=== PATIENT | male | born 1980 | race Caucasian/White ===

== ENCOUNTER 2017-05-31 10:00 | Emergency (ER) | payer OTHER ==
[2017-05-31] MEDS ORDERED: NORMAL SALINE 10 ML SYRINGE FLUSH IVP PRN (10:19)
[2017-05-31] MEDS ORDERED: TAMSULOSIN 0.4 MG CAPSULE PO ONE (10:19)
[2017-05-31] MEDS ORDERED: Sodium Chloride 0.9% 1,000 ML PRIMARY IV ONE (10:19)
[2017-05-31] MEDS ORDERED: KETOROLAC 30 MG/1 ML VIAL IVP ONE (10:19)
[2017-05-31 10:32] LABS: BASOPHILS # (AUTO) 0.01 10*3/UL; BASOPHILS % (AUTO) 0.1 % (0-1); EOSINOPHILS # (AUTO) 0.05 10*3/UL; EOSINOPHILS % (AUTO) 0.7 % (0-8); HEMATOCRIT 44.7 % (42.0-52.0); HEMOGLOBIN 16.1 g/dL (14.0-18.0); LYMPHOCYTES # (AUTO) 1.07 10*3/uL; MEAN CORPUSCULAR HEMOGLOBIN 31.9 PG (27-31); MEAN CORPUSCULAR VOLUME 88.5 FL (80-90); MEAN PLATELET VOLUME 10.3 FL (7.4-12.2); MONOCYTES # (AUTO) 0.53 10*3/UL (0.3-0.8); MONOCYTES % (AUTO) 7.3 % (5-15); NEUTROPHILS % (AUTO) 76.9 % (50-80); RED BLOOD COUNT 5.05 10^6/uL (4.70-6.10)
[2017-05-31 10:34] LABS: BILIRUBIN,URINE MODERATE (NEG); CLARITY,URINE CLEAR (CLEAR); COLOR,URINE BROWN; GLUCOSE, URINE (UA) NEGATIVE (NEG); NITRATE,URINE NEGATIVE (NEG); OCCULT BLOOD,URINE LARGE (NEG); PH,URINE 5.5 (5.0-8.5); PLATELET MORPHOLOGY COMMENT NORMAL MORPHOLOGY (NORM); PROTEIN,URINE 100 mg/dl (NEG); RBC MORPHOLOGY COMMENT NORMAL MORPHOLOGY (NORM); WBC MORPHOLOGY COMMENT NORMAL MORPHOLOGY (NORM)
[2017-05-31 10:35] LABS: URINE SAMPLE TYPE CLEAN CATCH URINE
[2017-05-31 10:37] LABS: BLOOD UREA NITROGEN 15 mg/dL (7-22); BUN/CREATININE RATIO 16.66 (6-20); CALCIUM 9.2 mg/dL (8.7-10.7); EST GLOMERULAR FILTRATION > 60 (>60 ml/min/1.73m(2)); SERUM ALBUMIN 4.8 g/dL (3.5-4.8)
[2017-05-31 10:44] LABS: RBC,URINE 20-30 /hpf; SQUAMOUS EPITHELIAL CELL,UR FEW
[2017-05-31 10:45] LABS: BACTERIA,URINE FEW; URINE CASTS RARE
[2017-05-31 10:56] VITALS: RESP 20; TEMP 96.1
--- NOTE | 2017-05-31 11:48 | DI ---
CT ABDOMEN SCAN WITHOUT IV CONTRAST, 05/31/2017 10:19 AM : Clinical History: Left flank pain. Previous Exam: None at this facility. Scans are performed from the lower lung bases through the liver and kidneys without IV contrast. Sagi ttal and coronal reformatted images are generated. The lung bases are clear. The liver is normal. The gallbladder is grossly normal. There is no abnorma lity of the spleen, pancreas, and adrenal glands. Both kidneys are normal in size, shape, position an d contour. There is no right hydronephrosis or hydroureter. No right renal or ureteral calculi are pr esent. The left kidney shows no hydronephrosis but there are some very small densities in the range o f 1-2 mm in upper pole, mid zone, and lower pole calyces that may represent renal calculi. There is m ild hydroureter without evidence of a left ureteral calculus. No calculus is seen in the bladder. The re are no abnormal retrocrural or periaortic nodes. No ascites is present. READIN. Small 1-2 mm densities are present in the left kidney that may represent nonobstructing very smal l calculi. No left ureteral calculus is seen but there is mild hydroureter. This patient may have pas sed a very small calculus that cannot be identified in the bladder. The right kidney and ureter are n ormal. 2. The remainder of the exam is normal. CT PELVIS SCAN WITHOUT IV CONTRAST, 05/31/2017 10:19 AM : Clinical History: See above. Previous Exam: None. Scans are performed from the inferior margin of the liver and kidneys to the symphysis pubis without IV contrast. There is no free fluid collection and there is no adenopathy. The appendix is normal. The small bowel , terminal ileum, and ileocecal valve are normal. The colon is also normal. There are no hernias. READING: Normal CT pelvis scan.
--- NOTE | 2017-06-01 04:05 | PDOC ---
Male Genitourinary Problem HPI - General Chief Complaint: Genitourinary Complaint Stated Complaint: LEFT FLANK PAIN Date Seen by Provider: 05/31/17 Time Seen by Provider: 10:10 Source: POSITIVE: Patient Exam Limitations: POSITIVE: No limitations Nurse's Notes Reviewed & Considered: Yes - History of Present Illness Initial Comments: The patient is a 37-year-old male. He states that approximately 2 hours [employer] he developed the abrupt onset of left flank pain. He had an associated sensation of urinary urgency. He states that at the time of onset his pain was a 9 on a scale of 10. By the time he presents to the emergency room his pain is down to 82 on a scale of 10. No vomiting. No fevers or chills. No abdominal pain. No gross hematuria. Body Location Affected: REPORTS: Back (Left flank) Timing: REPORTS: Abrupt Duration: 1-3 hours (2 hours [employer]) Severity: Moderate Quality: REPORTS: "Pain" Context: DENIES: Drug Use, Lifting, Trauma, Recent Surgery, Other (please comment) Sexual History: DENIES: Non-Contributory, Homosexual, Unprotected Alfred, Known Exposure to STD, Other Associated Symptoms: REPORTS: Urgency, Flank Pain (Left) Similar Symptoms Previously: No Recent Care Received: REPORTS: Denies Any Prior Injuries Related to Current Complaint?: No - Patient Home Medications Home Medications: Home Medications NK [No Home Medications Reported] 05/31/17 - Patient Allergies Allergies/Adverse Reactions: Allergies Allergy/AdvReac Type Severity Reaction Status Date / Time No Known Allergies Allergy Unverified 05/31/17 10:15 Past Medical History - heen HEENT History: Denies History Cardiovascular History: Denies History Respiratory History: Denies History Gastrointestinal History: Denies History Genitourinary History: Denies History Endocrine History: Denies History Musculoskeletal History: Denies History Neurological History: Denies History Blood Disorders: Denies History Psychiatric History: Denies History History of Sexually Transmitted Diseases: No Male Reproductive History: Denies History Cancer History: Denies History In Past Year Been Physically Harmed or Verbally Threatened: No History of MDRO: No Tobacco Use: Current Every Day Smoker Alcohol Use: Occasionally Substance Use Type: None Previous Surgical History: No Significant Family History: No pertinent family hx Past Medical History Reviewed: Reviewed - No Changes ROS - Limitations ROS Limitations: No Limitations Constitution: REPORTS: Denies Symptoms Cardiovascular: REPORTS: Denies Cardiac Symptoms Respiratory: REPORTS: Denies Resp Symptoms Neurological: REPORTS: Denies Neuro Symptoms Gastrointestinal: REPORTS: Denies GI Symptoms Endocrine: REPORTS: Denies Symptoms Musculoskeletal: REPORTS: Denies MS Symptoms Genitourinary: REPORTS: Flank Pain (Left), Other (Urinary urgency) Eyes: REPORTS: Denies Symptoms ENT: REPORTS: Denies Symptoms Skin: REPORTS: Denies Skin Symptoms Lympathic: REPORTS: Denies Lympathic Symptoms Immunologic: POSITIVE: Denies Symptoms Psychiatric: POSITIVE: Denies Psych Symptoms Male Genitourinary Exam - General Appearance General Appearance: POSITIVE: Alert, Cooperative, No Acute Distress, No Evidence of Trauma - Abdomen Abdomen: Soft: (All Quadrants), Normal Bowel Sounds: (All Quadrants), Denies Tenderness: (All Quadrants), No Splenomegaly: (All Quadrants), No Hepatomegaly: (All Quadrants), No Guarding: (All Quadrants), No Rebound: (All Quadrants), No Palpable Pulse: (All Quadrants), No Palpabale Mass: (All Quadrants), No Distention: (All Quadrants), No Rigidity: (All Quadrants) - HEENT HEENT: POSITIVE: Head Inspection Nml, Eyes Inspection Nml, Ears Inspection Nml, Nose Inspection Nml, Oral/Dental Inspect. Nml, Pharynx Inspect. 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, Motor Normal, Sensation Normal, 5, 6 - Skin Skin: POSITIVE: Intact, Normal For Race, Warm, Dry, No Rash Images - Complete Complete: 1 - Area of described pain Male Genitourinary Progress - Results Reviewed by me Xrays/CTs/US Reviewed by me: Yes Discussed with Radiologist: Yes Radiology Findings: CT scan abdomen and pelvis with IV contrast shows mild left hydroureter and probable recently passed stone Lab Results Reviewed: Yes Lab Results: Laboratory Results 05/31/17 Range/Units 10:29 WBC 7.28 (4.8-10.8) 10^3/uL RBC 5.05 (4.70-6.10) 10^6/uL Hgb 16.1 (14.0-18.0) g/dL Hct 44.7 (42.0-52.0) % MCV 88.5 (80-90) FL MCH 31.9 H (27-31) PG MCHC 36.0 (33-37) g/dL RDW Std Deviation 41.2 (39-50) fL RDW Coeff of Zach 12.9 (11.5-14.5) % Plt Count 242 (140-350) 10*3/uL MPV 10.3 (7.4-12.2) FL Immature Gran % (Auto) 0.3 (0-5) % Neut % (Auto) 76.9 (50-80) % Lymph % (Auto) 14.7 (10-50) % Payette % (Auto) 7.3 (5-15) % Eos % (Auto) 0.7 (0-8) % Baso % (Auto) 0.1 (0-1) % Immature Gran # (Auto) 0.02 10*3/UL Neut # (Auto) 5.60 10*3/UL Lymph # (Auto) 1.07 10*3/uL Payette # (Auto) 0.53 (0.3-0.8) 10*3/UL Eos # (Auto) 0.05 10*3/UL Baso # (Auto) 0.01 10*3/UL WBC Morphology Comment Normal morphology (NORM) Plt Morphology Comment Normal morphology (NORM) RBC Morph Comment Normal morphology (NORM) Sodium 141 (135-145) meq/L Potassium 3.6 L (3.8-5.2) meq/L Chloride 105 (98-112) meq/L Carbon Dioxide 21 L (23-33) meq/L Anion Gap 15 (5-20) BUN 15 (7-22) mg/dL Creatinine 0.9 (0.70-1.50) mg/dL Estimated GFR > 60 (>60 ml/min/1.73m(2)) BUN/Creatinine Ratio 16.66 (6-20) Glucose 136 H (78-110) mg/dL Calculated Osmolality 294.0 H (267-292) mOsm/kg Calcium 9.2 (8.7-10.7) mg/dL Total Bilirubin 1.5 H (0.3-1.2) mg/dL AST 62 H (21-57) IU/L ALT 107 H (21-72) IU/L Alkaline Phosphatase 88 (38-126) IU/L Total Protein 8.6 H (6.1-8.0) g/dL Albumin 4.8 (3.5-4.8) g/dL Globulin 3.8 (2.50-4.10) g/dL Albumin/Globulin Ratio 1.20 L (1.3-2.0) mg/g Ur Collection Type Clean catch urine Urine Color Brown Urine Clarity Clear (CLEAR) Urine pH 5.5 (5.0-8.5) Ur Specific Ramey 1.025 (1.005-1.030) Urine Protein 100 (NEG) mg/dl Urine Glucose (UA) Negative (NEG) mg/dL Urine Ketones Trace (NEG) Urine Occult Blood Large H (NEG) Urine Nitrate Negative (NEG) Urine Bilirubin Moderate (NEG) Urine Urobilinogen 1.0 (0.2) EU/dL Ur Leukocyte Esterase Negative (NEG) Urine RBC 20-30 (NONE) /hpf Urine WBC 5-8 (NONE) Ur Squamous Epith Cells Few (NONE) Ur Renal Epithelial Cell None (NONE) Urine Crystals None Urine Bacteria Few (NONE) Urine Casts Rare (NONE) Urine Mucus None (NONE) Urine Trichomonas None (NONE) Urine Yeast None (NONE) Ur Culture Indicated? Culture set - Patient's Progress Pain Medication Addressed: POSITIVE: Yes School/Work Release Addressed: POSITIVE: Not Applicable Re-Examine Time:: 12:15 Re-Examine Comment: Patient asymptomatic on discharge Status: POSITIVE: Improved, Re-Examined - Consult Counseled: POSITIVE: Patient, RE: Lab Results, RE: Radiology Results, RE: DX, RE : Need for F/U Patient Care Time - Estimated PCT Patient Care Time (In Minutes): 50 Vital Signs - VS Reviewed Vital Signs Reviewed: Yes Discharge Clinical Impression: Renal colic Discharge Disposition: Discharged to Home Condition: Good Patient Instructions Given at Discharge: Renal Colic (ED) Additional Instructions: I believe you have passed a kidney stone. CT of your abdomen and pelvis shows no kidney stones in your ureter at this time, but there is evidence of a recently passed stone. I believe you're going to be fine now increase fluids. Return any time if he redevelop any pain or develop fevers, chills or if your condition worsens in any way. Follow Up With: NONE,NONE [Primary Care Provider] - (Instructions as above. Return anytime if condition worsens. Follow-up with your primary care provider.)
== END 2017-05-31 12:15 | disposition home or self-care (01) ==
LOC: ER 10:00
DX: N23 Unspecified renal colic (principal); M54.89 Other dorsalgia; R39.15 Urgency of urination; R10.12 Left upper quadrant pain
CPT/HCPCS: 74176; 80053; 81001; 81003; 85025; 96361; 96374; 99283 ×2; J1885; 87088; J7030